=== PATIENT | female | born 1975 | race Caucasian/White ===

== ENCOUNTER 2018-07-03 15:51 | Emergency (ER) | payer OTHER ==
[~2018-07-03] VITALS: Ht 170.2 cm; Wt 120.5 kg
[~2018-07-03 15:51] MED LIST: ADVIL200 MG PO; ALLEGRA ALLERGY60 MG PO; FLONASEALLERGY NS; NEURONTIN100 MG/CAP PO; NO HOME MEDICATIONS; PERCOCET 325 MG1 TA2 PO; SYNTHROID0.075 MG PO; SYNTHROID0.1 MG/TAB PO; [UNRECOGNIZED DRUG - REMARK]
[2018-07-03 16:13] VITALS: BP 143/85; PULSE 92; TEMP 98.1
== END 2018-07-03 17:34 | disposition left against medical advice (07) ==
LOC: COL.ER 15:51
DX: S69.92XA Unspecified injury of left wrist, hand and finger(s), initial encounter (principal); X58.XXXA Exposure to other specified factors, initial encounter

== ENCOUNTER 2021-04-23 01:57 | Emergency (ER) | payer OTHER ==
[2021-04-23 02:07] VITALS: TEMP 98.6
[2021-04-23 02:26] LABS: BASO # 0.1 K/mm3 (0.0-0.2); BASO % 0.7 % (0.0-2.0); EOS # 0.4 K/mm3 (0.0-0.7); EOS % 2.7 % (0.0-4.0); GRAN # 7.4 K/mm3 (1.4-6.5); HEMATOCRIT 49.1 % (37.0-47.0); LYMPH # 5.2 K/mm3 (1.2-3.4); MEAN CELL VOLUME 90 fl (80.0-100.0); MEAN CORPUSCULAR HEMOGLOBIN 29 pg (27-31); MEAN CORPUSCULAR HGB CONC 33 g/dl (33.0-37.0); MEAN PLATELET VOLUME 10.5 fl (7.4-10.4); MONO # 0.9 K/mm3 (0.1-0.6); MONO % 6.2 % (1.7-9.3); PLATELET COUNT 362 K/mm3 (130-400); RED BLOOD COUNT 5.44 M/mm3 (4.10-5.30); REDCELL DISTRIBUTION WIDTH-CV 14.3 % (11.5-14.5)
[2021-04-23 02:43] LABS: ALANINE AMINOTRANSFERASE 24 U/L (0-55); ALBUMIN 3.7 gm/dL (3.5-5.0); ALKALINE PHOSPHATASE 109 U/L (40-150); ANION GAP 12 mmol/L (7-16); AST,SGOT 15 U/L (5-34); BILIRUBIN,TOTAL 0.4 mg/dL (0.2-1.2); BLOOD UREA NITROGEN 12 mg/dL (7-19); CALCIUM 9.4 mg/dL (8.4-10.2); CARBON DIOXIDE 22 mmol/L (22-29); CHLORIDE 106 mmol/L (98-107); CREATININE, serum 0.83 mg/dL (0.57-1.11); GLUCOSE 123 mg/dL (70-99); POTASSIUM 3.9 mmol/L (3.5-4.5); SODIUM 140 mmol/L (136-145); TOTAL PROTEIN 7.1 gm/dL (6.2-8.1)
[2021-04-23 02:49] LABS: TROPONIN-I < 0.010 ng/mL (0.00-0.033)
[2021-04-23 06:45] VITALS: BP 148/100; PULSE 68
[2021-04-23] MEDS ORDERED: NORCO 325 MG-51 TAB PO (06:47)
== END 2021-04-23 06:52 | disposition home or self-care (01) ==
LOC: COL.ER 01:57
PROVIDERS: Personal Emergency Response Attendant
DX: R07.2 Precordial pain (principal); Z82.49 Family history of ischemic heart disease and other diseases of the circulatory system
CPT/HCPCS: J2270; J2405; Q9967